=== PATIENT | female | born 1985 | race Caucasian/White ===

== ENCOUNTER 2017-07-22 18:22 | Emergency (ER) | payer OTHER ==
[2017-07-22] MEDS ORDERED: Sodium Chloride 0.9% 1,000 ML IV ONE ×2 (19:40→20:28)
--- NOTE | 2017-07-22 19:40 | C.PDOC ---
History Of Present Illness Pt is 10 weeks , presents with nausea and vomiting, not tolerating po. No f/v Time Seen by Provider: 07/22/17 19:39 Chief Complaint (Nursing): Abdominal Pain History/Exam Limitations: no limitations Onset/Duration Of Symptoms: Days Current Symptoms Are (Timing): Still Present Context: Other Severity: Moderate Pain Scale Rating Of: 5 Radiation Of Pain To:: None Quality Of Discomfort: Dull Associated Symptoms: Nausea, Vomiting. denies: Fever, Chills Exacerbating Factors: Food Alleviating Factors: None Last Bowel Movement: Days Ago Recent travel outside of the [place]: No Additional History Per: Family Past Medical History Reviewed: Historical Data, Nursing Documentation, Vital Signs Vital Signs: Last Vital Signs Temp 98.2 F 07/23/17 00:03 Pulse 74 07/23/17 00:03 Resp 18 07/23/17 00:03 BP 96/60 L 07/23/17 00:03 Pulse Ox 99 07/23/17 00:03 - Medical History PMH: Anxiety, Depression Family History: States: No Known Family Hx - Social History Hx Alcohol Use: No Hx Substance Use: No - Immunization History Hx Tetanus Toxoid Vaccination: No Hx Influenza Vaccination: No Hx Pneumococcal Vaccination: No Review Of Systems Constitutional: Negative for: Fever, Chills Cardiovascular: Negative for: Chest Pain Respiratory: Negative for: Shortness of Breath Gastrointestinal: Positive for: Nausea, Vomiting. Negative for: Abdominal Pain Genitourinary: Negative for: Dysuria Musculoskeletal: Negative for: Back Pain Skin: Negative for: Rash Neurological: Negative for: Weakness Psych: Negative for: Anxiety Physical Exam - Physical Exam Appears: Non-toxic Skin: Warm, Dry Head: Normacephalic Eye(s): bilateral: Normal Inspection Oral Mucosa: Dry Neck: Supple Chest: Symmetrical Cardiovascular: Rhythm Regular Respiratory: No Rales, No Rhonchi, No Wheezing Gastrointestinal/Abdominal: Soft, No Tenderness, Distention Back: No CVA Tenderness Extremity: Normal ROM Extremity: Bilateral: Atraumatic Pulses: Left Dorsalis Pedis: Normal, Right Dorsalis Pedis: Normal Neurological/Psych: Oriented x3, Normal Speech, Normal Cognition Gait: Steady ED Course And Treatment - Laboratory Results Result Diagrams: 07/22/17 20:02 07/22/17 20:02 O2 Sat by Pulse Oximetry: 98 Pulse Ox Interpretation: Normal Reevaluation Time: 00:18 Reassessment Condition: Improved Disposition Counseled Patient/Family Regarding: Studies Performed, Diagnosis, Need For Followup, Rx Given - Disposition Referrals: Gris Mena MD [Staff Provider] - Disposition: HOME/ ROUTINE Disposition Time: 19:39 Condition: FAIR Additional Instructions: Please follow up with your rehabilitation services counselor Prescriptions: Metoclopramide [Reglan] 1 tab PO TID PRN #25 tab PRN Reason: Nausea/Vomiting Instructions: Nausea and Vomiting of (DC) Forms: [employer] ([place]isian) Print Language: PORTUGUESE - Clinical Impression Clinical Impression: Hyperemesis
[2017-07-22 20:15] LABS: BASO % 0.5 % (0.0-2.0); EOS # 0.1 K/uL (0.0-0.7); EOS % 0.9 % (0.0-4.0); HEMOGLOBIN 10.6 g/dL (11.0-16.0); LYMPH # 1.1 K/uL (1.0-4.3); LYMPH % 14.2 % (20.0-40.0); MEAN CORPUSCULAR HEMOGLOBIN 30.4 pg (27.0-31.0); MEAN CORPUSCULAR HGB CONC 34.2 g/dL (33.0-37.0); MEAN PLATELET VOLUME 8.7 fL (7.2-11.7); MONO # 0.9 K/uL (0.0-0.8); MONO % 10.6 % (0.0-10.0); NEUT % 73.8 % (50.0-75.0); RBC 3.5 Mil/uL (3.80-5.20); RED CELL DISTRIBUTION WIDTH 13.7 % (11.5-14.5); WHITE BLOOD COUNT 8.1 K/uL (4.8-10.8)
[2017-07-22 20:23] LABS: INR 1.2; PROTHROMBIN TIME 13.8 SECONDS (9.7-12.2)
[2017-07-22 20:25] LABS: ALB/GLOB RATIO 1.1 (1.0-2.1); ALBUMIN 3.6 g/dL (3.5-5.0); ALT/SGPT 24 U/L (9-52); AST/SGOT 21 U/L (14-36); BLOOD UREA NITROGEN 5 mg/dL (7-17); CALCIUM 9.5 mg/dl (8.6-10.4); GFR AFRICAN-AMERICAN > 60; GFR NON-AFRICAN AMERICAN > 60
[2017-07-22 20:30] LABS: SQUAMOUS EPITHIAL 23 /hpf (0-5); URINE BACTERIA FEW (<OCC); URINE BILIRUBIN NEGATIVE (NEGATIVE); URINE BLOOD 1+ (NEGATIVE); URINE CLARITY Hazy (Clear); URINE COLOR YELLOW (YELLOW); URINE GLUCOSE (UA) NORMAL (Normal); URINE LEUKOCYTE ESTERASE TRACE Leu/uL (Negative); URINE PROTEIN 1+ mg/dL (NEGATIVE); URINE UROBILINOGEN NORMAL mg/dL (0.2-1.0)
--- NOTE | 2017-07-22 23:55 | US ---
EXAM: US First Trimester, Transabdominal US , Transvaginal CLINICAL HISTORY: 32 years old, female; Pain; complicated by abdominal or pelvic pain; Generalized abdominal pain; First trimester; Gestational age or lmp: [id number]; ; Additional info: , abdominal pain TECHNIQUE: Real-time transabdominal and transvaginal obstetrical ultrasound of the maternal pelvis and a first trimester with image documentation. Transvaginal imaging was used for better evaluation of the fetus and adnexa. COMPARISON: No relevant prior studies available. FINDINGS: Gestation: The uterus contains a normal gestational sac measuring 4.7 cm. A normal pole is identified measuring 4.3 cm. A normal yolk sac is identified measuring 4 mm. Measurements correlate with a mean gestational age of 10 weeks 5 days. The estimated date of delivery is 02/12/2018. Embryonic/ cardiac activity is identified, at a rate of 156 beats per minute. Placenta/amniotic fluid: The placenta is located posteriorly and is normal. There are 2 nonspecific, cystic areas in the posterior placenta. Uterus/cervix: Unremarkable measuring 10.8 x 7.3 x 10.0 cm. No myometrial mass. The cervix is closed measuring 3 cm. Ovaries: Unremarkable. The right ovary measures 3.3 x 3.1 x 2.9 cm. The left ovary measures 2.3 x 0.7 x 2.1 cm. No mass. Free fluid: No free fluid. IMPRESSION: Live intrauterine , with no evidence of early complications.
[2017-07-23 00:04] VITALS: BP 96/60; PULSE 74; RESP 18; TEMP 98.2
[2017-07-23 00:20] VITALS: O2SAT 98
== END 2017-07-23 00:43 | disposition home or self-care (01) ==
LOC: C.ER 18:22
DX: O21.0 Mild hyperemesis gravidarum (principal); Z3A.10 10 weeks gestation of pregnancy
CPT/HCPCS: 76801; 80053; 81001; 84702; 85025; 85610; 85730; 86850; 86900; 96361; 96374; 99284; J2405; J7040